=== PATIENT | female | born 1990 | race Caucasian/White ===

== ENCOUNTER 2018-12-16 20:56 | Emergency (ER) | payer OTHER ==
[~2018-12-16] VITALS: Ht 160 cm; Wt 101.4 kg
[2018-12-16 20:57] VITALS: BP 179/93
[2018-12-16] MEDS ORDERED: CHLO125TA (21:08)
[2018-12-16] MEDS ORDERED: FERR1TAB8 (21:08)
[2018-12-16] MEDS ORDERED: AMOX875T (21:08)
[2018-12-16] MEDS ORDERED: PERCOCET 5MG/325MG TAB PO ONE (22:00)
[2018-12-16] MEDS ORDERED: CYCLOBENZAPRINE 10 MG TAB PO ONE (22:00)
[2018-12-16 22:12] LABS: BLOOD UREA NITROGEN 16 MG/DL (7-18); CALCIUM LEVEL 9.4 MG/DL (8.5-10.1); CARBON DIOXIDE LEVEL 30 MEQ/L (21-32); CHLORIDE LEVEL 105 MEQ/L (98-107); CREATININE FOR GFR 0.88 MG/DL (0.55-1.30); GLOMERULAR FILTRATION RATE > 60.0 (>60); GLUCOSE, FASTING 90 MG/DL (70-100); POTASSIUM SERUM 3.8 MEQ/L (3.5-5.1); SODIUM LEVEL 142 MEQ/L (136-145)
[2018-12-16] MEDS ORDERED: IBUP-1022 PO (22:43)
[2018-12-16] MEDS ORDERED: ROBA500T PO (22:43)
== END 2018-12-16 22:58 | disposition home or self-care (01) ==
LOC: M ED 20:56
DX: M62.830 Muscle spasm of back (principal); Z88.2 Allergy status to sulfonamides; Z88.8 Allergy status to other drugs, medicaments and biological substances; Z79.899 Other long term (current) drug therapy; Z79.2 Long term (current) use of antibiotics

== ENCOUNTER → 2022-01-08 | Outpatient (CLI) | payer OTHER ==
[~2022-01-08] MED LIST: AMOX875T; CHLO125TA; FERR1TAB8; IBUP-1022 PO; ROBA500T PO
== END ==
LOC: M RAD 10:50
PROVIDERS: ATTEND Physician Assistant Medical
DX: R10.9 Unspecified abdominal pain (principal); K76.0 Fatty (change of) liver, not elsewhere classified; R16.1 Splenomegaly, not elsewhere classified